=== PATIENT | male | born 1955 | race Caucasian/White ===

== ENCOUNTER → 2017-06-03 | Outpatient (CLI) | payer OTHER ==
[2017-06-03 14:21] LABS: CSF TUBE# GLU TUBE 1; CSF TUBE# TP TUBE 1; GLUCOSE CSF 121 MG/DL (40-75); TOTAL PROTEIN,CSF 53.1 MG/DL (15-45)
[2017-06-03 14:26] LABS: CSF RBC < 2 10^3/uL (<2); CSF WBC 1 /uL (0-10)
[2017-06-03 14:27] LABS: APPEARANCE, CSF CLEAR (CLEAR); COLOR, CSF COLORLESS (COLORLESS); CSF DIFF IF INDICATED? NO (NO); CSF TUBE# CELL CNT TUBE 1
[2017-06-03 14:51] LABS: CSF GROUP B STREP NEGATIVE (NEGATIVE); CSF H. INFLUENZA NEGATIVE (NEGATIVE); CSF N MENINGITIDIS ACYW135 NEGATIVE (NEGATIVE); CSF STREP PNUEMO NEGATIVE (NEGATIVE); CSF TUBE# BACT AG TUBE 1
[2017-06-07 00:08] LABS: IMMUNOGLOBULIN G CSF 3.1 mg/dL (0.0-8.6)
== END ==
LOC: M RADPRO 12:20
DX: G91.2 (Idiopathic) normal pressure hydrocephalus (principal); E11.9 Type 2 diabetes mellitus without complications; Z79.84 Long term (current) use of oral hypoglycemic drugs; Z79.899 Other long term (current) drug therapy
CPT/HCPCS: 62270